=== PATIENT | female | born 1990 | race Caucasian/White ===

== ENCOUNTER → 2019-01-28 16:40 | Observation (INO) ==
[2019-01-28 15:59] LABS: Bilirubin,Urine Negative (Negative); Blood,Urine Negative (Negative); Clarity,Urine Cloudy (Clear); Color,Urine Yellow (Yellow); Glucose,Urine (UA) Normal (Normal); Ketones,Urine Negative (Negative); Leukocyte Esterase,Urine Negative (Negative); Nitrite,Urine Negative (Negative); PH,Urine 6.5 pH Units (5.0-8.0); Protein,Urine Negative (Neg-Trace); Specific Gravity,Urine 1.022 (1.010-1.025)
[2019-01-28 16:02] LABS: Bacteria,Urine Moderate per hpf (None-Few); Squamous Epithelial Cell,Urine Many per lpf (None-Few)
[2019-01-28 16:04] LABS: Amphetamine Screen,Urine Negative ng/mL (Cutoff=1000); Barbiturate Screen,Urine Negative ng/mL (Cutoff=200); Benzodiazepines Screen,Urine Negative ng/mL (Cutoff=200); Cannabinoid Screen,Urine Negative ng/mL (Cutoff = 50); Cocaine Screen,Urine Negative ng/mL (Cutoff= 300); Opiate Screen,Urine Negative ng/mL (Cutoff=300); Phencyclidine Screen,Urine Negative ng/mL (Cutoff=25)
[2019-01-28 16:22] LABS: RBC,Urine 0-3 per hpf (0-3)
[2019-01-28 16:23] LABS: Hyaline Casts,Urine None Seen per lpf (None-Few)
[~2019-01-28 16:40] MED LIST: Lidocaine -MPF 1% 5 ML AMPUL INFILT ONE
--- NOTE | 2019-01-28 16:43 | Operative Note ---
Date of procedure: 01/28/19 Pre-op diagnosis: Intrauterine at 31-0/7 weeks, right Bartholin abscess Post-op diagnosis: same Procedure: Incision and drainage of right Bartholin abscess Anesthesia: local Surgeon: Nishant Lane Was there an financial sales assistant present: No Estimated blood loss (cc): 5 Specimen: Cultures from right Bartholin abscess Condition: stable Disposition: other Procedure in Detail: Patient is a 28-year-old 3 para 1011 at 31-0/7 weeks who presented to labor and delivery complaining of mass like feeling in the vagina. She states she felt like she had a ball in the vaginal area. States this started, approximately 2 days ago and today became very painful. She came to labor and delivery where she was evaluated and noted have a large right Bartholin abscess. She is not complaining of any obstetrical complaints baby is moving well. No cramping. We consented the patient for an I&D of the abscess. Procedure: Patient was placed in the dorsal lithotomy position after consent and timeout was obtained. The area was prepped with Betadine and 1% lidocaine was used to infiltrate a small area on the mucosal surface of the Bartholin then using a 15 blade scalpel a small incision was made large amounts of purulent foul-smelling discharge was expressed. We did do GC chlamydia cultures on this then a Word catheter was inserted and a 1 mL balloon was inflated to hold it in place. The abscess decompressed appropriately. Patient tolerated the procedure well. Catheter we left in place until seen in the office. Patient tolerated the procedure well. She was discharged on Keflex 500 mg twice a day for 10 days. She will be notified of the results once they return from the cultures.
== END | disposition home or self-care (01) ==
LOC: 1NENULAB
PROVIDERS: ADMIT Advanced Practice Midwife; ATTEND Advanced Practice Midwife

== ENCOUNTER 2019-03-28 01:10 | Inpatient (IN) ==
[2019-03-28] MEDS ORDERED: FLU Vac QV 19-20 (6Month+)/PF 0.5 ML SYRINGE IM ONE (01:32)
[2019-03-28] MEDS ORDERED: Famotidine 20 MG/2 ML VIAL IVP PRN (01:37)
[2019-03-28] MEDS ORDERED: Naloxone 0.4 MG/ML INJ IVP PRN (01:37)
[2019-03-28] MEDS ORDERED: Metoclopramide 10 MG/2 ML VIAL IVP PRN ×2 (01:37→05:45)
[2019-03-28] MEDS ORDERED: Ringers Solution, Lactated 1,000 ML ONE ×3 (01:42→02:31)
[2019-03-28] MEDS ORDERED: Ringers Solution, Lactated 1,000 ML IVC SCH (01:45)
[2019-03-28 01:46] LABS: Basophils % 0.4 %; Eosinophils # 0.1 K/mcL (0.0-0.6); Eosinophils % 1.1 %; Hematocrit 36.1 % (35.3-44.9); Hemoglobin 12.7 g/dL (11.5-15.4); Immature Granulocytes % 1.4 % (0-4); Lymphocytes # 2.5 K/mcL (0.6-4.6); Lymphocytes % 23.3 %; Mean Corpuscular HGB Conc 35.2 g/dL (31.6-35.5); Mean Corpuscular Hemoglobin 30.7 pg (28.0-33.3); Mean Platelet Volume 9.9 fL (9.4-12.4); Monocytes # 0.9 K/mcL (0.0-1.3); Monocytes % 8.6 %; Neutrophils # 6.9 K/mcL (1.6-8.9); Platelet Count 281 K/mcL (140-400); Red Blood Count 4.14 M/mcL (3.82-4.97); Red Cell Distribution Width 13.6 % (11.5-14.5); Segmented Neutrophils % 65.2 %; White Blood Count 10.5 K/mcL (4.3-11.1)
[2019-03-28] MEDS ORDERED: ceFAZolin 3,000 MG in Water for inj. (sterile) 30 ML IVP ONE (01:48)
[2019-03-28] MEDS ORDERED: *HR* FentaNYL (PF) 100 MCG/2 ML VIAL ONE (01:56)
[2019-03-28] MEDS ORDERED: *HR* Oxytocin 10 UNIT/ML VIAL IM ONE ×2 (01:56→03:22)
[2019-03-28] MEDS ORDERED: *HR* Phenylephrine 10 MG/ML VIAL ONE (01:56)
[2019-03-28] MEDS ORDERED: *HR* Morphine Sulfate/PF 10 MG/10 ML AMPUL ONE (01:56)
[2019-03-28] MEDS ORDERED: EPHEDrine 50 MG/ML VIAL ONE (01:56)
[2019-03-28 01:58] LABS: Mean Corpuscular Volume 87.2 fL (83.0-100.0)
[2019-03-28] MEDS ORDERED: *HR* HYDROmorphone (PF) 1 MG/ML SYRINGE IVP PRN (02:11)
[2019-03-28] MEDS ORDERED: Acetaminophen IV 1,000 MG/100 ML INFUS..BTL IVPB ONE (02:11)
[2019-03-28] MEDS ORDERED: Ondansetron 4 MG/2 ML VIAL IVP ONE (02:11)
[2019-03-28] MEDS ORDERED: *HR* OxyCODONE Immed Rel 5 MG TABLET PO PRN ×2 (02:11→05:45)
[2019-03-28] MEDS ORDERED: Ondansetron 4 MG/2 ML VIAL ONE (02:48)
[2019-03-28 05:27] LABS: Amphetamine Screen,Urine Negative ng/mL (Cutoff=1000); Barbiturate Screen,Urine Negative ng/mL (Cutoff=200); Benzodiazepines Screen,Urine Negative ng/mL (Cutoff=200); Cannabinoid Screen,Urine Negative ng/mL (Cutoff = 50); Cocaine Screen,Urine Negative ng/mL (Cutoff= 300); Opiate Screen,Urine Negative ng/mL (Cutoff=300); Phencyclidine Screen,Urine Negative ng/mL (Cutoff=25)
[2019-03-28] MEDS ORDERED: Oxytocin 20 units/ LR 1000 mL 20 UNIT/1,000 ML BAG IVC ONE (05:42)
[2019-03-28] MEDS ORDERED: Measles/Mumps/Rubella Vacc 0.5 ML VIAL SQ ONE (05:45)
[2019-03-28] MEDS ORDERED: Simethicone 80 MG TAB.CHEW PO PRN (05:45)
[2019-03-28] MEDS ORDERED: Ondansetron 4 MG/2 ML VIAL IVP PRN (05:45)
[2019-03-28] MEDS: Oxytocin 20 units/ LR 1000 mL 20 UNIT/1,000 ML BAG IVC SCH (05:52)
[2019-03-28] MEDS ORDERED: Acetaminophen 325 MG TABLET PO SCH (06:00)
[2019-03-28] MEDS: Ibuprofen 600 MG TABLET PO SCH ×2 (06:39→16:59)
[2019-03-28] MEDS: Prenatal Vit/FA 1 EACH TABLET PO SCH (09:06)
[2019-03-28] MEDS: cephALEXin 500 MG CAPSULE PO SCH ×3 (09:11→21:45)
[2019-03-28] MEDS: metroNIDAZOLE 500 MG TABLET PO SCH ×3 (09:11→21:45)
[2019-03-28] MEDS: Acetaminophen 325 MG TABLET PO SCH ×2 (09:12→16:59)
[2019-03-29 06:02] LABS: Basophils % 0.4 %; Eosinophils # 0.1 K/mcL (0.0-0.6); Eosinophils % 1.2 %; Hematocrit 33.1 % (35.3-44.9); Hemoglobin 11.3 g/dL (11.5-15.4); Lymphocytes # 2.2 K/mcL (0.6-4.6); Lymphocytes % 19.8 %; Mean Corpuscular HGB Conc 34.1 g/dL (31.6-35.5); Mean Corpuscular Hemoglobin 30.5 pg (28.0-33.3); Mean Corpuscular Volume 89.5 fL (83.0-100.0); Mean Platelet Volume 9.9 fL (9.4-12.4); Monocytes % 8.8 %; Neutrophils # 7.7 K/mcL (1.6-8.9); Platelet Count 249 K/mcL (140-400); Red Cell Distribution Width 13.9 % (11.5-14.5); Segmented Neutrophils % 68.8 %; White Blood Count 11.2 K/mcL (4.3-11.1)
[2019-03-29] MEDS: Ibuprofen 600 MG TABLET PO SCH ×7 (09:29→20:57)
[2019-03-29] MEDS: Prenatal Vit/FA 1 EACH TABLET PO SCH (09:31)
[2019-03-29] MEDS: metroNIDAZOLE 500 MG TABLET PO SCH ×3 (09:31→20:57)
[2019-03-29] MEDS: cephALEXin 500 MG CAPSULE PO SCH ×3 (09:31→20:57)
[2019-03-29] MEDS: Acetaminophen 325 MG TABLET PO SCH ×4 (09:32→20:59)
[2019-03-29] MEDS: Oxytocin 20 units/ LR 1000 mL 20 UNIT/1,000 ML BAG IVC SCH ×2 (09:35→09:36)
[2019-03-30 08:29] VITALS: BP 135/84
[2019-03-30] MEDS: Prenatal Vit/FA 1 EACH TABLET PO SCH (08:42)
[2019-03-30] MEDS: metroNIDAZOLE 500 MG TABLET PO SCH (08:42)
[2019-03-30] MEDS: cephALEXin 500 MG CAPSULE PO SCH (08:42)
[2019-03-30] MEDS ORDERED: FLU Vac QV 19-20 (6Month+)/PF 0.5 ML SYRINGE IM ONE (11:00)
== END 2019-03-30 12:20 | disposition home or self-care (01) | DRG 540 ==
LOC: 1NENULAB → OBSVTOIN 01:10 → 1NENUOBS 05:57
PROVIDERS: ADMIT Advanced Practice Midwife; ATTEND Advanced Practice Midwife

== ENCOUNTER 2020-04-11 04:43 | Inpatient (IN) ==
[~2020-04-11 04:43] MED LIST changes: +*HR* FentaNYL (PF) 100 MCG/2 ML VIAL ONE; +*HR* Morphine Sulfate/PF 10 MG/10 ML AMPUL ONE; +*HR* Succinylcholine 200 MG/10 ML VIAL IVP ONE; +Dexamethasone 4 MG/ML VIAL ONE; +EPHEDrine 50 MG/ML VIAL ONE; -Lidocaine -MPF 1% 5 ML AMPUL INFILT ONE; +Ondansetron 4 MG/2 ML VIAL ONE; +Ringers Solution, Lactated 1,000 ML ONE; +ceFAZolin 2,000 MG in Water for inj. (sterile) 20 ML IVP ONE
[2020-04-11] MEDS ORDERED: Ringers Solution, Lactated 1,000 ML ONE ×2 (05:01→05:57)
[2020-04-11] MEDS ORDERED: *HR* Oxytocin 10 UNIT/ML VIAL IM ONE ×2 (05:06→05:57)
[2020-04-11] MEDS ORDERED: Ketorolac 30 MG/ML VIAL ONE (05:14)
[2020-04-11] MEDS ORDERED: *HR* HYDROmorphone PF 0.5 MG/0.5 ML SYRINGE IVP PRN (06:01)
[2020-04-11] MEDS ORDERED: Promethazine 6.25 MG in Water for inj. (sterile) 20 ML IVPB PRN (06:01)
[2020-04-11] MEDS ORDERED: *HR* Phenylephrine 10 MG/ML VIAL ONE (06:23)
[2020-04-11] MEDS ORDERED: Metoclopramide 10 MG/2 ML VIAL IVP PRN ×2 (06:29→09:01)
[2020-04-11] MEDS ORDERED: Naloxone 0.4 MG/ML INJ IVP PRN (06:29)
[2020-04-11] MEDS ORDERED: Famotidine 20 MG/2 ML VIAL IVP PRN (06:29)
[2020-04-11] MEDS ORDERED: Ringers Solution, Lactated 1,000 ML IVC SCH (06:30)
[2020-04-11] MEDS ORDERED: CeFAZolin 2,000 MG/50 ML BAG IVPB ONE (06:31)
[2020-04-11 07:34] LABS: Basophils % 0.2 %; Eosinophils # 0.2 K/mcL (0.0-0.6); Eosinophils % 1.3 %; Hemoglobin 12.5 g/dL (11.5-15.4); Immature Granulocytes % 0.8 % (0-4); Lymphocytes % 23.8 %; Mean Corpuscular HGB Conc 32.9 g/dL (31.6-35.5); Mean Corpuscular Hemoglobin 29.8 pg (28.0-33.3); Mean Corpuscular Volume 90.5 fL (83.0-100.0); Mean Platelet Volume 10.1 fL (9.4-12.4); Monocytes % 8.1 %; Neutrophils # 8.3 K/mcL (1.6-8.9); Platelet Count 284 K/mcL (140-400); Red Cell Distribution Width 13.9 % (11.5-14.5); Segmented Neutrophils % 65.8 %; White Blood Count 12.7 K/mcL (4.3-11.1)
[2020-04-11] MEDS ORDERED: Rho Immune Globulin 1,500 UNIT SYRINGE IM ONE (09:01)
[2020-04-11] MEDS ORDERED: Simethicone 80 MG TAB.CHEW PO PRN (09:01)
[2020-04-11] MEDS ORDERED: Ondansetron 4 MG/2 ML VIAL IVP PRN (09:01)
[2020-04-11] MEDS ORDERED: *HR* OxyCODONE Immed Rel 5 MG TABLET PO PRN (09:01)
[2020-04-11] MEDS: Oxytocin 20 units/ LR 1000 mL 20 UNIT/1,000 ML BAG IVC SCH ×2 (09:26→17:39)
[2020-04-11] MEDS ORDERED: ceFAZolin 1,000 MG in Water for inj. (sterile) 20 ML IVP ONE (09:37)
[2020-04-11] MEDS: metroNIDAZOLE 500 MG TABLET PO SCH ×3 (09:44→22:07)
[2020-04-11] MEDS: cephALEXin 500 MG CAPSULE PO SCH ×2 (09:44→14:50)
[2020-04-11] MEDS: Prenatal Vit/FA 1 EACH TABLET PO SCH (09:44)
[2020-04-11] MEDS ORDERED: ceFAZolin 2,000 MG in Water for inj. (sterile) 20 ML IVP ONE (10:00)
[2020-04-11] MEDS: Ibuprofen 600 MG TABLET PO SCH ×2 (12:28→17:41)
[2020-04-11] MEDS: Acetaminophen 325 MG TABLET PO SCH ×2 (12:28→17:41)
[2020-04-12] MEDS: Ibuprofen 600 MG TABLET PO SCH ×3 (00:22→13:09)
[2020-04-12] MEDS: Acetaminophen 325 MG TABLET PO SCH ×3 (00:22→13:09)
[2020-04-12 07:40] VITALS: BP 111/71
[2020-04-12] MEDS: Prenatal Vit/FA 1 EACH TABLET PO SCH (09:18)
[2020-04-12] MEDS: cephALEXin 500 MG CAPSULE PO SCH (09:18)
[2020-04-12] MEDS: metroNIDAZOLE 500 MG TABLET PO SCH (09:18)
[2020-04-12 11:19] LABS: Basophils % 0.2 %; Eosinophils # 0.1 K/mcL (0.0-0.6); Eosinophils % 0.7 %; Hematocrit 30.2 % (35.3-44.9); Lymphocytes % 18.3 %; Mean Corpuscular HGB Conc 32.5 g/dL (31.6-35.5); Mean Corpuscular Hemoglobin 30.5 pg (28.0-33.3); Mean Corpuscular Volume 94.1 fL (83.0-100.0); Mean Platelet Volume 9.8 fL (9.4-12.4); Monocytes # 0.6 K/mcL (0.0-1.3); Monocytes % 5.6 %; Platelet Count 242 K/mcL (140-400); Red Blood Count 3.21 M/mcL (3.82-4.97); Red Cell Distribution Width 14.2 % (11.5-14.5); Segmented Neutrophils % 74.2 %; White Blood Count 10.8 K/mcL (4.3-11.1)
[2020-04-12 11:23] LABS: Hemoglobin 9.8 g/dL (11.5-15.4)
== END 2020-04-12 13:20 | disposition home or self-care (01) | DRG 539 ==
LOC: 1NENULAB → 1NENUOBS 08:44
PROVIDERS: ADMIT Obstetrics & Gynecology; ATTEND Obstetrics & Gynecology